=== PATIENT | male | born 1970 | race Caucasian/White ===

== ENCOUNTER 2017-08-24 13:55 | Emergency (ER) | payer MEDICAID ==
[~2017-08-24] VITALS: Ht 172.7 cm; Wt 86.2 kg
[~2017-08-24 13:55] MED LIST: GLY25T PO
[2017-08-24] MEDS ORDERED: cefTRIAXone W LIDOCAINE 1 GM IM IM ONE (15:00)
[2017-08-24 15:16] LABS: Basophils # (auto) 0 uL; Basophils % (auto) 0.3 % (0.0-2.0); Eosinophils # (auto) 0.1 uL; Eosinophils % (auto) 1.2 % (0.0-7.0); Hematocrit 51.1 % (41.0-53.0); Hemoglobin 17.2 g/dL (13.5-17.5); Lymphocytes # (auto) 2.2 uL; Mean Corpuscular Hemoglobin 29.9 pg (28.0-32.0); Mean Corpuscular Hgb Conc. 33.7 g/dL (32.0-36.0); Mean Corpuscular Volume 88.8 fL (80.0-100.0); Monocytes # (auto) 0.3 uL; Monocytes % (auto) 4.2 % (0.0-12.0); Neutrophils # (auto) 5.3 uL; Neutrophils % (auto) 66.3 % (37.0-80.0); Nucleated Red Blood Cells % 0.1 %; Platelet Count (auto) 188 10^3/uL (140-450); Red Blood Cells 5.75 10^6/uL (4.5-5.90); Red Cell Distribution Width 13.2 % (11.8-14.3)
[2017-08-24 15:33] LABS: Albumin 3.9 g/dL (3.4-5.0); BUN/Creatinine Ratio 10.5; Bilirubin, Total 0.4 mg/dL (0.2-1.0); Calcium 9.3 mg/dL (8.5-10.1); Potassium 4.5 mmol/L (3.5-5.1); Total Protein 8.8 g/dL (6.4-8.2)
[2017-08-24] MEDS ORDERED: InsuLIN REG 1unit/0.01ml Soln (100units/ml) IV ONE (16:00)
[2017-08-24 17:20] VITALS: BP 169/102
== END 2017-08-24 18:08 | disposition home or self-care (01) ==
LOC: ER 13:55
DX: L03.116 Cellulitis of left lower limb (principal); E11.65 Type 2 diabetes mellitus with hyperglycemia; J44.9 Chronic obstructive pulmonary disease, unspecified; F17.210 Nicotine dependence, cigarettes, uncomplicated; E78.5 Hyperlipidemia, unspecified
CPT/HCPCS: 36415; 80053; 82962; 85025; 85652; 96372; 96374; 99284; J0696; J1815

== ENCOUNTER 2017-09-01 18:42 | Inpatient (IN) | payer MEDICAID, OTHER ==
[~2017-09-01] VITALS: Ht 175.3 cm; Wt 84.9 kg
[2017-09-01 19:30] LABS: Basophils # (auto) 0.1 uL; Basophils % (auto) 1.3 % (0.0-2.0); Eosinophils # (auto) 0.1 uL; Eosinophils % (auto) 1.9 % (0.0-7.0); Hematocrit 47.7 % (41.0-53.0); Hemoglobin 16.9 g/dL (13.5-17.5); Lymphocytes # (auto) 2.9 uL; Lymphocytes % (auto) 38.6 % (10.0-50.0); Mean Corpuscular Hemoglobin 31.5 pg (28.0-32.0); Mean Corpuscular Hgb Conc. 35.5 g/dL (32.0-36.0); Mean Corpuscular Volume 88.8 fL (80.0-100.0); Monocytes # (auto) 0.4 uL; Monocytes % (auto) 5.4 % (0.0-12.0); Neutrophils % (auto) 52.8 % (37.0-80.0); Nucleated Red Blood Cells % 0.2 %; Platelet Count (auto) 192 10^3/uL (140-450); Red Blood Cells 5.38 10^6/uL (4.5-5.90); Red Cell Distribution Width 13.3 % (11.8-14.3); White Blood Cell 7.6 10^3/uL (4.4-10.8)
[2017-09-01 19:56] LABS: Albumin 3.8 g/dL (3.4-5.0); BUN/Creatinine Ratio 14.4; Bilirubin, Total 0.3 mg/dL (0.2-1.0); Calcium 9.4 mg/dL (8.5-10.1); Potassium 4.5 mmol/L (3.5-5.1); Total Protein 8.4 g/dL (6.4-8.2)
[2017-09-02] MEDS ORDERED: MORPHINE SULFATE 8mg/ml INJ SDV IV ONE (02:30)
[2017-09-02] MEDS ORDERED: ONDANSETRON HCL 4 MG/2 ML VIAL IV ONE (02:30)
[2017-09-02] MEDS ORDERED: InsuLIN REG 1unit/0.01ml Soln (100units/ml) IV ONE (02:45)
[2017-09-02] MEDS ORDERED: VANCOMYCIN 1GM/250ML 250 ML IV ONE (04:15)
[2017-09-02] MEDS ORDERED: ACETAMINOPHEN 500 MG TAB PO PRN (07:00)
[2017-09-02] MEDS: ONDANSETRON HCL 4 MG/2 ML VIAL IV PRN ×2 (07:45→14:52)
[2017-09-02] MEDS: MORPHINE SULFATE 8mg/ml INJ SDV IV PRN ×3 (07:45→21:50)
[2017-09-02] MEDS: glyBURIDE 5 MG TAB PO SCH (07:49)
[2017-09-02] MEDS ORDERED: DEXTROSE (50%) 50ML SYRG IV PRN (14:00)
[2017-09-02] MEDS ORDERED: LISINOPRIL 10 MG TAB PO ONE (14:00)
[2017-09-02] MEDS ORDERED: hydrALAZINE HCL 25 MG TAB PO PRN (14:00)
[2017-09-02] MEDS ORDERED: LORazepam 2MG/ML-1ML VIAL IV ONE (14:15)
[2017-09-02] MEDS ORDERED: KETOROLAC TROMETH 30 MG/ML 1ML VIAL IV ONE (14:30)
[2017-09-02] MEDS ORDERED: KETOROLAC TROMETH 30 MG/ML 1ML VIAL IV PRN (14:30)
[2017-09-02 15:14] LABS: INR 0.96 (0.9-1.15); Partial Thromboplastin Time 23.6 sec (22.64-33.71); Prothrombin Time 10.5 sec (9.37-12.3)
[2017-09-02] MEDS: CLINDAMYCIN 600MG IV 50 ML IV SCH ×2 (16:08→21:50)
[2017-09-02 16:46] VITALS: BP 152/87
[2017-09-02] MEDS ORDERED: INSLANTI SC (17:02)
[2017-09-02] MEDS: ACCU-CHEK COMFORT CURVE STRIP VI SCH ×2 (17:34→21:50)
[2017-09-02] MEDS: InsuLIN REG 1unit/0.01ml Soln (100units/ml) SC SCH ×2 (17:35→22:15)
[2017-09-02 18:28] VITALS: BP 140/80
[2017-09-02 22:00] VITALS: BP_SYST 102; BP_SYST 159; BP_DIAS 110; BP_DIAS 62
[2017-09-03] VITALS (7 sets, daily range): BP systolic 130–151; BP diastolic 75–97
[2017-09-03] MEDS: MORPHINE SULFATE 8mg/ml INJ SDV IV PRN (03:32)
[2017-09-03 04:24] LABS: Alcohol, Urine < 3.0 mg/dL (0-5); Amphetamine Screen, Urine NEGATIVE (NEGATIVE); Barbiturate Scree,Urine NEGATIVE (NEGATIVE); Benzodiazephine Screen, Urine NEGATIVE (NEGATIVE); Cannabinoid Screen, Urine POSITIVE (NEGATIVE); Cocaine Screen, Urine NEGATIVE (NEGATIVE); Opiate Scree,Urine POSITIVE (NEGATIVE); Phencyclidine Screen, Urine NEGATIVE (NEGATIVE)
[2017-09-03] MEDS: CLINDAMYCIN 600MG IV 50 ML IV SCH ×3 (05:56→22:17)
[2017-09-03] MEDS: glyBURIDE 5 MG TAB PO SCH (06:30)
[2017-09-03] MEDS: ACCU-CHEK COMFORT CURVE STRIP VI SCH ×4 (06:34→21:58)
[2017-09-03] MEDS: InsuLIN REG 1unit/0.01ml Soln (100units/ml) SC SCH ×4 (06:34→22:16)
[2017-09-03] MEDS: cefTRIAXone 1GM/10ml IVPUSH 10 ML IV SCH (09:25)
[2017-09-03] MEDS ORDERED: SODIUM CHLORIDE 0.9% 1,000 ML IV ONE (09:45)
[2017-09-03] MEDS ORDERED: MEPERIDINE HCL (25 MG/ML) 1ML VIAL IV ONE (09:45)
[2017-09-03] MEDS ORDERED: LORazepam 0.5 MG TAB PO PRN (09:45)
[2017-09-03] MEDS ORDERED: LISINOPRIL 10 MG TAB PO SCH (10:00)
[2017-09-03] MEDS ORDERED: IOHEXOL 350 MG/ML 100ML IJ ONE (11:54)
[2017-09-03 14:12] LABS: Basophils # (auto) 0.1 uL; Basophils % (auto) 0.8 % (0.0-2.0); Eosinophils # (auto) 0.1 uL; Eosinophils % (auto) 1.7 % (0.0-7.0); Hematocrit 44.6 % (41.0-53.0); Hemoglobin 15.5 g/dL (13.5-17.5); Lymphocytes # (auto) 2.6 uL; Lymphocytes % (auto) 39.4 % (10.0-50.0); Mean Corpuscular Hemoglobin 30.9 pg (28.0-32.0); Mean Corpuscular Hgb Conc. 34.8 g/dL (32.0-36.0); Mean Corpuscular Volume 88.8 fL (80.0-100.0); Monocytes # (auto) 0.4 uL; Neutrophils # (auto) 3.4 uL; Neutrophils % (auto) 52.1 % (37.0-80.0); Nucleated Red Blood Cells % 0.3 %; Platelet Count (auto) 175 10^3/uL (140-450); Red Blood Cells 5.02 10^6/uL (4.5-5.90); Red Cell Distribution Width 13.3 % (11.8-14.3); White Blood Cell 6.5 10^3/uL (4.4-10.8)
[2017-09-03 14:21] LABS: INR 0.95 (0.9-1.15); Prothrombin Time 10.3 sec (9.37-12.3)
[2017-09-03] MEDS ORDERED: HEPARIN SODIUM (PORCINE) 5000 UNITS/ML 1ML VIAL IV ONE (14:30)
[2017-09-03] MEDS: HEPARIN DRIP/D5W 100UNITS/ML 250 ML IV SCH (16:15)
[2017-09-03] MEDS: MEPERIDINE HCL (25 MG/ML) 1ML VIAL IV PRN ×2 (18:45→23:16)
[2017-09-03] MEDS: INSULIN LANTUS (GLARGINE) 1 /0.01ml (100units/ml) SC SCH (22:16)
[2017-09-03 23:26] LABS: INR 0.97 (0.9-1.15); Partial Thromboplastin Time 50.8 sec (22.64-33.71); Prothrombin Time 10.6 sec (9.37-12.3)
[2017-09-04] VITALS (7 sets, daily range): BP systolic 127–160; BP diastolic 65–99
[2017-09-04] MEDS: MEPERIDINE HCL (25 MG/ML) 1ML VIAL IV PRN ×2 (04:44→09:06)
[2017-09-04] MEDS: HEPARIN DRIP/D5W 100UNITS/ML 250 ML IV SCH (06:08)
[2017-09-04] MEDS: CLINDAMYCIN 600MG IV 50 ML IV SCH (06:27)
[2017-09-04] MEDS: ACCU-CHEK COMFORT CURVE STRIP VI SCH ×4 (06:48→22:26)
[2017-09-04 06:51] LABS: Basophils # (auto) 0 uL; Basophils % (auto) 0.6 % (0.0-2.0); Eosinophils # (auto) 0.2 uL; Eosinophils % (auto) 2.8 % (0.0-7.0); Hematocrit 42.9 % (41.0-53.0); Hemoglobin 14.9 g/dL (13.5-17.5); Lymphocytes # (auto) 2.9 uL; Lymphocytes % (auto) 47.5 % (10.0-50.0); Mean Corpuscular Hemoglobin 30.9 pg (28.0-32.0); Mean Corpuscular Hgb Conc. 34.8 g/dL (32.0-36.0); Mean Corpuscular Volume 88.9 fL (80.0-100.0); Monocytes # (auto) 0.5 uL; Monocytes % (auto) 7.7 % (0.0-12.0); Neutrophils # (auto) 2.5 uL; Neutrophils % (auto) 41.4 % (37.0-80.0); Nucleated Red Blood Cells % 0.3 %; Platelet Count (auto) 154 10^3/uL (140-450); Red Blood Cells 4.82 10^6/uL (4.5-5.90); Red Cell Distribution Width 13.3 % (11.8-14.3); White Blood Cell 6.1 10^3/uL (4.4-10.8)
[2017-09-04] MEDS: glyBURIDE 5 MG TAB PO SCH (07:00)
[2017-09-04] MEDS: InsuLIN REG 1unit/0.01ml Soln (100units/ml) SC SCH ×4 (07:05→22:27)
[2017-09-04] MEDS: INSULIN LANTUS (GLARGINE) 1 /0.01ml (100units/ml) SC SCH ×2 (07:05→22:00)
[2017-09-04 08:37] LABS: Urine Bacteria NONE SEEN /hpf (None Seen); Urine Blood Negative /uL (Negative); Urine Specific Gravity 1.021 (1.001-1.035); Urine WBC 1 /hpf (0 - 3)
[2017-09-04 09:03] LABS: BUN/Creatinine Ratio 15.9; Calcium 9.4 mg/dL (8.5-10.1)
[2017-09-04] MEDS: cefTRIAXone 1GM/10ml IVPUSH 10 ML IV SCH (09:05)
[2017-09-04] MEDS ORDERED: LIDOCAINE 2%HCL (LOCAL ANESTH.) INJ 20ML MDV ONE ×2 (10:10→18:16)
[2017-09-04] MEDS ORDERED: IODIXANOL 320MG/ML 100ML BTL IV ONE (10:10)
[2017-09-04] MEDS ORDERED: fentaNYL CITRATE 100 MCG/2 ML VL ONE (10:35)
[2017-09-04] MEDS ORDERED: MIDAZOLAM HCL 1MG/1ML-2 ML VIAL ONE ×2 (10:36→19:26)
[2017-09-04] MEDS ORDERED: SODIUM CHL 0.9% 50 ML ONE ×2 (10:37→19:32)
[2017-09-04] MEDS ORDERED: ANGIOMAX 250 MG VIAL IV ONE ×2 (10:37→19:32)
[2017-09-04] MEDS ORDERED: HYDROmorphone HCL 2 MG/ML VL ONE ×2 (11:39→19:05)
[2017-09-04] MEDS ORDERED: ASPirin 325 MG TAB ONE (11:40)
[2017-09-04] MEDS ORDERED: CATHFLO ACTIVASE (ALTEPLASE) 2 MG VIAL IV ONE ×2 (11:41→15:20)
[2017-09-04] MEDS ORDERED: CLOPIDOGREL 300 MG TAB ONE (11:41)
[2017-09-04] MEDS: CLINDAMYCIN HCL 150 MG CAP PO SCH ×2 (14:00→22:26)
[2017-09-04] MEDS ORDERED: HYDROmorphone HCL 2 MG/ML VL IV ONE (14:45)
[2017-09-04] MEDS: LISINOPRIL 10 MG TAB PO SCH ×2 (14:50→22:27)
[2017-09-04] MEDS ORDERED: IOHEXOL 350 MG/ML 100ML IJ ONE (18:15)
[2017-09-04] MEDS ORDERED: HEPARIN DRIP/D5W 100UNITS/ML 250 ML IV SCH ×2 (18:26→20:05)
[2017-09-04] MEDS ORDERED: HEPARIN SODIUM (PORCINE) 5000 UNITS/ML 1ML VIAL IV ONE (18:30)
[2017-09-04] MEDS ORDERED: ALTEPLASE IART SCH (19:15)
[2017-09-04] MEDS ORDERED: ALTEPLASE (RECOMBINANT) 100 MG in STERILE WATER 100 ML IV ONE ×3 (20:15→21:30)
[2017-09-04 21:20] LABS: Basophils # (auto) 0 uL; Basophils % (auto) 0.3 % (0.0-2.0); Eosinophils # (auto) 0.1 uL; Hematocrit 42.1 % (41.0-53.0); Hemoglobin 14.1 g/dL (13.5-17.5); Lymphocytes # (auto) 1.9 uL; Lymphocytes % (auto) 23.2 % (10.0-50.0); Mean Corpuscular Hemoglobin 29.8 pg (28.0-32.0); Mean Corpuscular Hgb Conc. 33.6 g/dL (32.0-36.0); Mean Corpuscular Volume 88.7 fL (80.0-100.0); Monocytes # (auto) 0.5 uL; Monocytes % (auto) 6.5 % (0.0-12.0); Neutrophils # (auto) 5.6 uL; Nucleated Red Blood Cells % 0.1 %; Platelet Count (auto) 160 10^3/uL (140-450); Red Blood Cells 4.75 10^6/uL (4.5-5.90); Red Cell Distribution Width 13.3 % (11.8-14.3); White Blood Cell 8.2 10^3/uL (4.4-10.8)
[2017-09-04] MEDS ORDERED: ALTEPLASE IV ONE ×2 (21:30→22:00)
[2017-09-04] MEDS ORDERED: STERILE WATER IV ONE ×2 (21:30→22:00)
[2017-09-04 21:35] LABS: INR 1.41 (0.9-1.15); Partial Thromboplastin Time 50.4 sec (22.64-33.71); Prothrombin Time 15.4 sec (9.37-12.3)
[2017-09-04] MEDS: HYDROmorphone HCL 2 MG/ML VL IV PRN (22:26)
[2017-09-05] VITALS (19 sets, daily range): BP systolic 116–159; BP diastolic 36–93
[2017-09-05] MEDS: HYDROmorphone HCL 2 MG/ML VL IV PRN ×4 (02:26→22:42)
[2017-09-05 04:27] LABS: Basophils # (auto) 0 uL; Basophils % (auto) 0.5 % (0.0-2.0); Eosinophils # (auto) 0.1 uL; Eosinophils % (auto) 1.1 % (0.0-7.0); Hematocrit 34.7 % (41.0-53.0); Hemoglobin 11.9 g/dL (13.5-17.5); Lymphocytes # (auto) 2.4 uL; Lymphocytes % (auto) 37.3 % (10.0-50.0); Mean Corpuscular Hemoglobin 30.7 pg (28.0-32.0); Mean Corpuscular Hgb Conc. 34.3 g/dL (32.0-36.0); Mean Corpuscular Volume 89.5 fL (80.0-100.0); Monocytes # (auto) 0.4 uL; Monocytes % (auto) 6.5 % (0.0-12.0); Neutrophils # (auto) 3.6 uL; Neutrophils % (auto) 54.6 % (37.0-80.0); Platelet Count (auto) 145 10^3/uL (140-450); Red Blood Cells 3.88 10^6/uL (4.5-5.90); Red Cell Distribution Width 13.1 % (11.8-14.3); White Blood Cell 6.5 10^3/uL (4.4-10.8)
[2017-09-05 04:44] LABS: INR 1.01 (0.9-1.15); Partial Thromboplastin Time 25.7 sec (22.64-33.71)
[2017-09-05 05:34] LABS: Fibrinogen 241.3 mg/dL (177-375)
[2017-09-05] MEDS: glyBURIDE 5 MG TAB PO SCH (05:57)
[2017-09-05] MEDS: CLINDAMYCIN HCL 150 MG CAP PO SCH ×3 (05:57→21:58)
[2017-09-05] MEDS: InsuLIN REG 1unit/0.01ml Soln (100units/ml) SC SCH ×4 (06:26→22:09)
[2017-09-05] MEDS: INSULIN LANTUS (GLARGINE) 1 /0.01ml (100units/ml) SC SCH ×2 (06:27→22:08)
[2017-09-05] MEDS: ACCU-CHEK COMFORT CURVE STRIP VI SCH ×4 (06:28→22:08)
[2017-09-05] MEDS: MEPERIDINE HCL (50 MG/ML) 1 ML VIAL IV PRN ×2 (09:02→18:28)
[2017-09-05] MEDS: LISINOPRIL 10 MG TAB PO SCH ×2 (09:24→21:58)
[2017-09-05 09:40] LABS: Basophils # (auto) 0 uL; Basophils % (auto) 0.6 % (0.0-2.0); Eosinophils # (auto) 0.1 uL; Eosinophils % (auto) 1.8 % (0.0-7.0); Hematocrit 37.4 % (41.0-53.0); Hemoglobin 12.9 g/dL (13.5-17.5); Lymphocytes # (auto) 2.5 uL; Lymphocytes % (auto) 38.6 % (10.0-50.0); Mean Corpuscular Hemoglobin 30.5 pg (28.0-32.0); Mean Corpuscular Hgb Conc. 34.4 g/dL (32.0-36.0); Mean Corpuscular Volume 88.7 fL (80.0-100.0); Monocytes # (auto) 0.5 uL; Monocytes % (auto) 7.1 % (0.0-12.0); Neutrophils # (auto) 3.4 uL; Neutrophils % (auto) 51.9 % (37.0-80.0); Nucleated Red Blood Cells % 0.2 %; Platelet Count (auto) 152 10^3/uL (140-450); Red Blood Cells 4.22 10^6/uL (4.5-5.90); Red Cell Distribution Width 13.2 % (11.8-14.3); White Blood Cell 6.5 10^3/uL (4.4-10.8)
[2017-09-05] MEDS ORDERED: IODIXANOL 320MG/ML 100ML BTL IV ONE (09:49)
[2017-09-05] MEDS ORDERED: LIDOCAINE 2%HCL (LOCAL ANESTH.) INJ 20ML MDV ONE (09:50)
[2017-09-05 10:04] LABS: Fibrinogen 295.3 mg/dL (177-375); INR 0.98 (0.9-1.15); Partial Thromboplastin Time 25.9 sec (22.64-33.71); Prothrombin Time 10.7 sec (9.37-12.3)
[2017-09-05] MEDS ORDERED: HYDROmorphone HCL 2 MG/ML VL ONE (10:44)
[2017-09-05] MEDS ORDERED: MIDAZOLAM HCL 1MG/1ML-2 ML VIAL ONE (10:51)
[2017-09-05] MEDS ORDERED: CATHFLO ACTIVASE (ALTEPLASE) 2 MG VIAL IV ONE ×4 (11:03→13:07)
[2017-09-05] MEDS ORDERED: SODIUM CHL 0.9% 50 ML ONE ×3 (11:04→13:32)
[2017-09-05] MEDS ORDERED: ANGIOMAX 250 MG VIAL IV ONE ×3 (11:04→13:32)
[2017-09-05] MEDS ORDERED: IOHEXOL 350 MG/ML 100ML IJ ONE ×2 (11:39→13:20)
[2017-09-05] MEDS ORDERED: CLOPIDOGREL BISULFATE 75 MG TAB ONE (12:05)
[2017-09-05] MEDS ORDERED: ASPirin 81 mg TAB ONE (12:06)
[2017-09-05 14:58] LABS: Basophils # (auto) 0 uL; Basophils % (auto) 0.4 % (0.0-2.0); Eosinophils # (auto) 0.1 uL; Eosinophils % (auto) 1.6 % (0.0-7.0); Hematocrit 37.8 % (41.0-53.0); Hemoglobin 12.8 g/dL (13.5-17.5); Lymphocytes # (auto) 2.2 uL; Lymphocytes % (auto) 31.5 % (10.0-50.0); Mean Corpuscular Hgb Conc. 33.8 g/dL (32.0-36.0); Mean Corpuscular Volume 88.9 fL (80.0-100.0); Monocytes # (auto) 0.5 uL; Monocytes % (auto) 7.5 % (0.0-12.0); Neutrophils # (auto) 4.1 uL; Nucleated Red Blood Cells % 0.1 %; Platelet Count (auto) 159 10^3/uL (140-450); Red Blood Cells 4.26 10^6/uL (4.5-5.90); Red Cell Distribution Width 13.2 % (11.8-14.3)
[2017-09-05] MEDS: HEPARIN DRIP/D5W 100UNITS/ML 250 ML IV SCH (17:03)
[2017-09-05 17:53] LABS: Basophils # (auto) 0 uL; Basophils % (auto) 0.6 % (0.0-2.0); Eosinophils # (auto) 0.1 uL; Eosinophils % (auto) 1.6 % (0.0-7.0); Hemoglobin 11.8 g/dL (13.5-17.5); Lymphocytes # (auto) 1.7 uL; Lymphocytes % (auto) 26.7 % (10.0-50.0); Mean Corpuscular Hemoglobin 30.5 pg (28.0-32.0); Mean Corpuscular Hgb Conc. 34.6 g/dL (32.0-36.0); Monocytes # (auto) 0.4 uL; Monocytes % (auto) 6.8 % (0.0-12.0); Neutrophils # (auto) 4.1 uL; Neutrophils % (auto) 64.3 % (37.0-80.0); Nucleated Red Blood Cells % 0.1 %; Platelet Count (auto) 144 10^3/uL (140-450); Red Blood Cells 3.86 10^6/uL (4.5-5.90); Red Cell Distribution Width 12.8 % (11.8-14.3); White Blood Cell 6.4 10^3/uL (4.4-10.8)
[2017-09-05 21:28] LABS: INR 0.99 (0.9-1.15); Partial Thromboplastin Time 41.3 sec (22.64-33.71); Prothrombin Time 10.8 sec (9.37-12.3)
[2017-09-06 00:05] VITALS: BP 134/78
[2017-09-06 01:16] LABS: Basophils # (auto) 0 uL; Basophils % (auto) 0.5 % (0.0-2.0); Eosinophils # (auto) 0.1 uL; Eosinophils % (auto) 2.1 % (0.0-7.0); Hemoglobin 11.3 g/dL (13.5-17.5); Lymphocytes # (auto) 2.5 uL; Lymphocytes % (auto) 39.4 % (10.0-50.0); Mean Corpuscular Hemoglobin 30.6 pg (28.0-32.0); Mean Corpuscular Hgb Conc. 34.3 g/dL (32.0-36.0); Mean Corpuscular Volume 89.2 fL (80.0-100.0); Monocytes # (auto) 0.5 uL; Monocytes % (auto) 7.5 % (0.0-12.0); Neutrophils # (auto) 3.2 uL; Neutrophils % (auto) 50.5 % (37.0-80.0); Nucleated Red Blood Cells % 0.3 %; Platelet Count (auto) 142 10^3/uL (140-450); Red Cell Distribution Width 13.2 % (11.8-14.3); White Blood Cell 6.3 10^3/uL (4.4-10.8)
[2017-09-06] MEDS: HEPARIN DRIP/D5W 100UNITS/ML 250 ML IV SCH ×2 (02:17→16:30)
[2017-09-06] MEDS: HYDROmorphone HCL 2 MG/ML VL IV PRN ×4 (02:44→17:51)
[2017-09-06 04:10] VITALS: BP 128/78
[2017-09-06 05:22] LABS: Basophils # (auto) 0 uL; Basophils % (auto) 0.4 % (0.0-2.0); Eosinophils # (auto) 0.1 uL; Eosinophils % (auto) 2.1 % (0.0-7.0); Hematocrit 33.7 % (41.0-53.0); Hemoglobin 11.8 g/dL (13.5-17.5); Lymphocytes % (auto) 44.3 % (10.0-50.0); Mean Corpuscular Hemoglobin 30.8 pg (28.0-32.0); Mean Corpuscular Hgb Conc. 34.9 g/dL (32.0-36.0); Mean Corpuscular Volume 88.3 fL (80.0-100.0); Monocytes # (auto) 0.5 uL; Monocytes % (auto) 7.6 % (0.0-12.0); Neutrophils # (auto) 3.1 uL; Neutrophils % (auto) 45.6 % (37.0-80.0); Platelet Count (auto) 147 10^3/uL (140-450); Red Blood Cells 3.82 10^6/uL (4.5-5.90); White Blood Cell 6.9 10^3/uL (4.4-10.8)
[2017-09-06 05:42] LABS: Calcium 8.8 mg/dL (8.5-10.1); Potassium 3.9 mmol/L (3.5-5.1)
[2017-09-06 05:43] LABS: INR 1.03 (0.9-1.15); Partial Thromboplastin Time 50.3 sec (22.64-33.71); Prothrombin Time 11.2 sec (9.37-12.3)
[2017-09-06] MEDS: MEPERIDINE HCL (50 MG/ML) 1 ML VIAL IV PRN ×4 (06:19→20:35)
[2017-09-06] MEDS: ACCU-CHEK COMFORT CURVE STRIP VI SCH ×4 (06:33→22:28)
[2017-09-06] MEDS: CLINDAMYCIN HCL 150 MG CAP PO SCH ×3 (06:35→22:27)
[2017-09-06] MEDS: INSULIN LANTUS (GLARGINE) 1 /0.01ml (100units/ml) SC SCH ×2 (06:36→22:28)
[2017-09-06] MEDS: glyBURIDE 5 MG TAB PO SCH (06:36)
[2017-09-06] MEDS: InsuLIN REG 1unit/0.01ml Soln (100units/ml) SC SCH ×4 (06:37→22:28)
[2017-09-06 08:00] VITALS: BP 115/91
[2017-09-06] MEDS: CLOPIDOGREL BISULFATE 75 MG TAB PO SCH (10:34)
[2017-09-06] MEDS: LISINOPRIL 10 MG TAB PO SCH ×2 (10:35→22:33)
[2017-09-06] MEDS: ASPirin-EC 81 mg tab PO SCH (10:36)
[2017-09-06 11:44] LABS: Basophils # (auto) 0 uL; Basophils % (auto) 0.3 % (0.0-2.0); Eosinophils # (auto) 0.1 uL; Eosinophils % (auto) 2.2 % (0.0-7.0); Hematocrit 31.7 % (41.0-53.0); Hemoglobin 10.8 g/dL (13.5-17.5); Lymphocytes # (auto) 2.4 uL; Lymphocytes % (auto) 39.3 % (10.0-50.0); Mean Corpuscular Hemoglobin 30.1 pg (28.0-32.0); Mean Corpuscular Volume 88.4 fL (80.0-100.0); Monocytes # (auto) 0.5 uL; Monocytes % (auto) 7.3 % (0.0-12.0); Neutrophils # (auto) 3.2 uL; Neutrophils % (auto) 50.9 % (37.0-80.0); Platelet Count (auto) 138 10^3/uL (140-450); Red Blood Cells 3.58 10^6/uL (4.5-5.90); Red Cell Distribution Width 12.8 % (11.8-14.3); White Blood Cell 6.2 10^3/uL (4.4-10.8)
[2017-09-06 11:50] VITALS: BP 146/66
[2017-09-06 12:00] LABS: INR 0.99 (0.9-1.15); Prothrombin Time 10.8 sec (9.37-12.3)
[2017-09-06] MEDS: HYDROcodone-ACET 5/325MG TAB PO PRN ×2 (14:12→19:13)
[2017-09-06 15:57] VITALS: BP 153/80
[2017-09-06 17:36] LABS: Basophils # (auto) 0 uL; Basophils % (auto) 0.4 % (0.0-2.0); Eosinophils # (auto) 0.2 uL; Eosinophils % (auto) 2.6 % (0.0-7.0); Hemoglobin 11.4 g/dL (13.5-17.5); Lymphocytes # (auto) 3.1 uL; Lymphocytes % (auto) 45.2 % (10.0-50.0); Mean Corpuscular Hemoglobin 30.7 pg (28.0-32.0); Mean Corpuscular Hgb Conc. 34.6 g/dL (32.0-36.0); Monocytes # (auto) 0.6 uL; Monocytes % (auto) 8.3 % (0.0-12.0); Neutrophils % (auto) 43.5 % (37.0-80.0); Nucleated Red Blood Cells % 0.1 %; Platelet Count (auto) 168 10^3/uL (140-450); Red Blood Cells 3.71 10^6/uL (4.5-5.90); Red Cell Distribution Width 13.1 % (11.8-14.3); White Blood Cell 6.8 10^3/uL (4.4-10.8)
[2017-09-06 19:50] VITALS: BP 133/59
[2017-09-06 23:25] LABS: INR 0.95 (0.9-1.15); Partial Thromboplastin Time 55.3 sec (22.64-33.71); Prothrombin Time 10.4 sec (9.37-12.3)
[2017-09-07 00:10] VITALS: BP 124/75
[2017-09-07] MEDS: HYDROmorphone HCL 2 MG/ML VL IV PRN ×5 (00:25→20:20)
[2017-09-07] MEDS: MEPERIDINE HCL (50 MG/ML) 1 ML VIAL IV PRN (03:52)
[2017-09-07 04:10] VITALS: BP 140/90
[2017-09-07] MEDS: HEPARIN DRIP/D5W 100UNITS/ML 250 ML IV SCH ×2 (05:15→15:18)
[2017-09-07 05:24] LABS: Basophils # (auto) 0 uL; Basophils % (auto) 0.5 % (0.0-2.0); Eosinophils # (auto) 0.2 uL; Hematocrit 30.4 % (41.0-53.0); Hemoglobin 10.4 g/dL (13.5-17.5); Lymphocytes # (auto) 2.4 uL; Lymphocytes % (auto) 47.5 % (10.0-50.0); Mean Corpuscular Hemoglobin 30.5 pg (28.0-32.0); Mean Corpuscular Hgb Conc. 34.1 g/dL (32.0-36.0); Mean Corpuscular Volume 89.3 fL (80.0-100.0); Monocytes # (auto) 0.5 uL; Neutrophils # (auto) 2.1 uL; Nucleated Red Blood Cells % 0.1 %; Platelet Count (auto) 142 10^3/uL (140-450); Red Cell Distribution Width 13.2 % (11.8-14.3); White Blood Cell 5.1 10^3/uL (4.4-10.8)
[2017-09-07 05:39] LABS: INR 0.95 (0.9-1.15); Partial Thromboplastin Time 63.4 sec (22.64-33.71); Prothrombin Time 10.4 sec (9.37-12.3)
[2017-09-07 05:41] LABS: BUN/Creatinine Ratio 12.7; Calcium 8.5 mg/dL (8.5-10.1); Potassium 3.8 mmol/L (3.5-5.1)
[2017-09-07] MEDS: CLINDAMYCIN HCL 150 MG CAP PO SCH ×3 (05:48→21:49)
[2017-09-07] MEDS: InsuLIN REG 1unit/0.01ml Soln (100units/ml) SC SCH ×4 (06:52→21:50)
[2017-09-07] MEDS: INSULIN LANTUS (GLARGINE) 1 /0.01ml (100units/ml) SC SCH ×2 (06:52→21:50)
[2017-09-07] MEDS: glyBURIDE 5 MG TAB PO SCH (06:53)
[2017-09-07] MEDS: ACCU-CHEK COMFORT CURVE STRIP VI SCH ×4 (06:53→21:50)
[2017-09-07 08:00] VITALS: BP 142/76
[2017-09-07] MEDS: CLOPIDOGREL BISULFATE 75 MG TAB PO SCH (11:17)
[2017-09-07] MEDS: LISINOPRIL 10 MG TAB PO SCH ×2 (11:17→21:50)
[2017-09-07] MEDS: ASPirin-EC 81 mg tab PO SCH (11:24)
[2017-09-07 11:50] VITALS: BP 130/82
[2017-09-07 15:52] VITALS: BP 145/82
[2017-09-07] MEDS: HYDROcodone-ACET 5/325MG TAB PO PRN (17:46)
[2017-09-07] MEDS: ATORVASTATIN 20 MG TAB PO SCH (21:49)
[2017-09-07 22:00] VITALS: BP 157/99
[2017-09-08] MEDS: HYDROmorphone HCL 2 MG/ML VL IV PRN ×6 (00:19→20:56)
[2017-09-08] MEDS: HEPARIN DRIP/D5W 100UNITS/ML 250 ML IV SCH ×2 (04:48→16:42)
[2017-09-08 05:00] VITALS: BP 143/84
[2017-09-08] MEDS: CLINDAMYCIN HCL 150 MG CAP PO SCH ×3 (05:27→21:44)
[2017-09-08 06:07] LABS: INR 0.95 (0.9-1.15); Partial Thromboplastin Time 61.3 sec (22.64-33.71); Prothrombin Time 10.4 sec (9.37-12.3)
[2017-09-08 06:34] LABS: Cholesterol 203 mg/dL (< 200); HDL Cholesterol 46 mg/dL (40-59); LDL Cholesterol 124 mg/dL (< 100); Triglycerides 331 mg/dL (< 150)
[2017-09-08] MEDS: InsuLIN REG 1unit/0.01ml Soln (100units/ml) SC SCH ×4 (06:46→21:45)
[2017-09-08] MEDS: INSULIN LANTUS (GLARGINE) 1 /0.01ml (100units/ml) SC SCH ×2 (06:46→21:45)
[2017-09-08] MEDS: ACCU-CHEK COMFORT CURVE STRIP VI SCH ×4 (06:46→21:45)
[2017-09-08] MEDS: glyBURIDE 5 MG TAB PO SCH (06:46)
[2017-09-08 08:00] VITALS: BP 134/75
[2017-09-08 09:00] VITALS: BP 134/75
[2017-09-08] MEDS: HYDROcodone-ACET 5/325MG TAB PO PRN ×2 (10:52→15:35)
[2017-09-08] MEDS: LISINOPRIL 10 MG TAB PO SCH ×2 (12:22→21:45)
[2017-09-08] MEDS: ASPirin-EC 81 mg tab PO SCH (12:47)
[2017-09-08] MEDS: CLOPIDOGREL BISULFATE 75 MG TAB PO SCH (12:47)
[2017-09-08 13:00] VITALS: BP 150/76
[2017-09-08] MEDS ORDERED: CLOP75TA28 PO (13:12)
[2017-09-08] MEDS ORDERED: ATOR20TA50 PO (13:12)
[2017-09-08] MEDS ORDERED: LISI10TA6 PO (13:12)
[2017-09-08] MEDS ORDERED: ASP81EC PO (13:12)
[2017-09-08 16:43] VITALS: BP 126/65
[2017-09-08] MEDS: ATORVASTATIN 20 MG TAB PO SCH (21:44)
[2017-09-08 23:10] VITALS: BP 143/78
[2017-09-09] MEDS: HYDROmorphone HCL 2 MG/ML VL IV PRN ×6 (01:05→22:00)
[2017-09-09] MEDS: HEPARIN DRIP/D5W 100UNITS/ML 250 ML IV SCH ×2 (05:06→17:47)
[2017-09-09 05:25] VITALS: BP 116/78
[2017-09-09] MEDS: CLINDAMYCIN HCL 150 MG CAP PO SCH ×3 (06:00→22:02)
[2017-09-09 06:03] LABS: BUN/Creatinine Ratio 12.8; Calcium 9.3 mg/dL (8.5-10.1); Potassium 4.1 mmol/L (3.5-5.1)
[2017-09-09 06:06] LABS: INR 0.89 (0.9-1.15); Prothrombin Time 9.7 sec (9.37-12.3)
[2017-09-09 06:07] LABS: Basophils # (auto) 0 uL; Basophils % (auto) 0.6 % (0.0-2.0); Eosinophils # (auto) 0.2 uL; Eosinophils % (auto) 3.9 % (0.0-7.0); Hematocrit 33.2 % (41.0-53.0); Hemoglobin 11.5 g/dL (13.5-17.5); Lymphocytes # (auto) 2.6 uL; Lymphocytes % (auto) 42.9 % (10.0-50.0); Mean Corpuscular Hemoglobin 30.9 pg (28.0-32.0); Mean Corpuscular Hgb Conc. 34.5 g/dL (32.0-36.0); Mean Corpuscular Volume 89.4 fL (80.0-100.0); Monocytes # (auto) 0.5 uL; Monocytes % (auto) 7.5 % (0.0-12.0); Neutrophils # (auto) 2.7 uL; Neutrophils % (auto) 45.1 % (37.0-80.0); Nucleated Red Blood Cells % 0.1 %; Platelet Count (auto) 209 10^3/uL (140-450); Red Blood Cells 3.72 10^6/uL (4.5-5.90); Red Cell Distribution Width 13.1 % (11.8-14.3); White Blood Cell 6.1 10^3/uL (4.4-10.8)
[2017-09-09 06:12] LABS: Partial Thromboplastin Time 71.6 sec (22.64-33.71)
[2017-09-09] MEDS: InsuLIN REG 1unit/0.01ml Soln (100units/ml) SC SCH ×4 (06:33→22:07)
[2017-09-09] MEDS: INSULIN LANTUS (GLARGINE) 1 /0.01ml (100units/ml) SC SCH ×2 (06:33→22:06)
[2017-09-09] MEDS: glyBURIDE 5 MG TAB PO SCH (06:33)
[2017-09-09] MEDS: ACCU-CHEK COMFORT CURVE STRIP VI SCH ×4 (06:34→22:03)
[2017-09-09 08:00] VITALS: BP 139/69
[2017-09-09 09:00] VITALS: BP 139/69
[2017-09-09] MEDS: CLOPIDOGREL BISULFATE 75 MG TAB PO SCH (09:30)
[2017-09-09] MEDS: ASPirin-EC 81 mg tab PO SCH (09:30)
[2017-09-09] MEDS: LISINOPRIL 10 MG TAB PO SCH ×2 (09:31→22:02)
[2017-09-09 13:00] VITALS: BP 118/81
[2017-09-09] MEDS ORDERED: HYDROcodone-ACET 5/325MG TAB PO PRN (14:00)
[2017-09-09] MEDS ORDERED: IODIXANOL 320MG/ML 100ML BTL IV ONE (15:16)
[2017-09-09] MEDS ORDERED: LIDOCAINE 2%HCL (LOCAL ANESTH.) INJ 20ML MDV ONE (15:17)
[2017-09-09] MEDS ORDERED: fentaNYL CITRATE 100 MCG/2 ML VL ONE (15:38)
[2017-09-09] MEDS ORDERED: diphenhdrAMINE HCL 50 MG/1 ML VL ONE (15:38)
[2017-09-09] MEDS ORDERED: MIDAZOLAM HCL 1MG/1ML-2 ML VIAL ONE (15:39)
[2017-09-09] MEDS ORDERED: LIDOCAINE HCL 2% TOP JELLY 5ML TOP ONE (16:15)
[2017-09-09] MEDS: ATORVASTATIN 20 MG TAB PO SCH (22:02)
[2017-09-10] MEDS: HYDROmorphone HCL 2 MG/ML VL IV PRN ×3 (01:59→10:17)
[2017-09-10 05:00] VITALS: BP 103/65
[2017-09-10] MEDS: HEPARIN DRIP/D5W 100UNITS/ML 250 ML IV SCH (06:00)
[2017-09-10] MEDS: CLINDAMYCIN HCL 150 MG CAP PO SCH (06:13)
[2017-09-10] MEDS: glyBURIDE 5 MG TAB PO SCH (06:31)
[2017-09-10] MEDS: ACCU-CHEK COMFORT CURVE STRIP VI SCH ×2 (06:31→11:30)
[2017-09-10] MEDS: InsuLIN REG 1unit/0.01ml Soln (100units/ml) SC SCH ×2 (06:32→11:30)
[2017-09-10] MEDS: INSULIN LANTUS (GLARGINE) 1 /0.01ml (100units/ml) SC SCH (06:32)
[2017-09-10 06:53] LABS: Basophils # (auto) 0 uL; Basophils % (auto) 0.4 % (0.0-2.0); Eosinophils # (auto) 0.2 uL; Eosinophils % (auto) 3.4 % (0.0-7.0); Hemoglobin 12.4 g/dL (13.5-17.5); Lymphocytes # (auto) 3.1 uL; Lymphocytes % (auto) 43.5 % (10.0-50.0); Mean Corpuscular Hemoglobin 30.9 pg (28.0-32.0); Mean Corpuscular Hgb Conc. 34.4 g/dL (32.0-36.0); Mean Corpuscular Volume 89.8 fL (80.0-100.0); Monocytes # (auto) 0.6 uL; Monocytes % (auto) 8.2 % (0.0-12.0); Neutrophils # (auto) 3.1 uL; Neutrophils % (auto) 44.5 % (37.0-80.0); Nucleated Red Blood Cells % 0.1 %; Platelet Count (auto) 235 10^3/uL (140-450); Red Blood Cells 4.01 10^6/uL (4.5-5.90); Red Cell Distribution Width 13.3 % (11.8-14.3); White Blood Cell 7.1 10^3/uL (4.4-10.8)
[2017-09-10 07:05] LABS: INR 0.98 (0.9-1.15); Partial Thromboplastin Time 67.2 sec (22.64-33.71); Prothrombin Time 10.7 sec (9.37-12.3)
[2017-09-10 09:00] VITALS: BP 120/70
[2017-09-10] MEDS ORDERED: GLY5T PO (09:38)
[2017-09-10] MEDS: ASPirin-EC 81 mg tab PO SCH (10:16)
[2017-09-10] MEDS: LISINOPRIL 10 MG TAB PO SCH (10:16)
[2017-09-10] MEDS: CLOPIDOGREL BISULFATE 75 MG TAB PO SCH (10:16)
[2017-09-10 11:20] VITALS: BP 120/70
[2017-09-10 11:45] VITALS: BP 120/70
== END 2017-09-10 12:48 | disposition home or self-care (01) | DRG 169 ==
LOC: ER 18:42 → OVERFLOW 18:43 → WEST WING 09-02 15:44 → DOU IN ICU 09-05 14:37 → TELE-CENTR 09-07 17:55 → CENTRAL 09-09 03:30
PROVIDERS: ADMIT Nurse Practitioner Family; ATTEND Internal Medicine
PROC: 047D3DZ Dilation of Left Common Iliac Artery with Intraluminal Device, Percutaneous Approach (ICD-10-PCS; principal; 2017-09-05)
PROC: 04CD3ZZ Extirpation of Matter from Left Common Iliac Artery, Percutaneous Approach (ICD-10-PCS; 2017-09-05)
PROC: 3E05317 Introduction of Other Thrombolytic into Peripheral Artery, Percutaneous Approach (ICD-10-PCS; 2017-09-05)
PROC: B41G1ZZ Fluoroscopy of Left Lower Extremity Arteries using Low Osmolar Contrast (ICD-10-PCS; 2017-09-09)
DX: E11.51 Type 2 diabetes mellitus with diabetic peripheral angiopathy without gangrene (principal); E11.42 Type 2 diabetes mellitus with diabetic polyneuropathy; D68.69 Other thrombophilia; L03.116 Cellulitis of left lower limb; E11.65 Type 2 diabetes mellitus with hyperglycemia; J44.9 Chronic obstructive pulmonary disease, unspecified; I73.9 Peripheral vascular disease, unspecified; Z80.1 Family history of malignant neoplasm of trachea, bronchus and lung; Z82.49 Family history of ischemic heart disease and other diseases of the circulatory system; Z83.3 Family history of diabetes mellitus; Z79.4 Long term (current) use of insulin; I74.5 Embolism and thrombosis of iliac artery; F17.210 Nicotine dependence, cigarettes, uncomplicated; E78.1 Pure hyperglyceridemia; I77.1 Stricture of artery; I77.89 Other specified disorders of arteries and arterioles
CPT/HCPCS: 36415; 37186; 37211; 37221; 71045; 73700; 73718; 75635; 76000; 76937; 80048; 80053; 80061; 80307; 81001; 82962; 83036; 84550; 85025; 85384; 85610; 85652; 85730; 87081; 93926; 96365; 96375; 96376; 99152; J1815; J1885; J2250; J2270; J2405; J3490; Q9967

== ENCOUNTER 2020-05-13 16:48 | Emergency (ER) | payer MEDICAID ==
[~2020-05-13] VITALS: Ht 172.7 cm; Wt 77.1 kg
[~2020-05-13 16:48] MED LIST changes: +ASPI-394 PO; +ATOR20TA50 PO; +CLOP75TA28 PO; +GLYB5TAB9 PO; +INSLANTI SC; +LISI-648 PO
[2020-05-13 19:28] LABS: Basophils # (auto) 0 10 ^3/uL (0-0.2); Basophils % (auto) 0.4 % (0.0-2.0); Eosinophils # (auto) 0 10 ^3/uL (0-0.8); Eosinophils % (auto) 0.6 % (0.0-7.0); Hematocrit 49.2 % (41.0-53.0); Hemoglobin 17.1 g/dL (13.5-17.5); Lymphocytes # (auto) 2.1 10 ^3/uL (0.4-5.4); Lymphocytes % (auto) 37.7 % (10.0-50.0); Mean Corpuscular Hgb Conc. 34.7 g/dL (32.0-36.0); Mean Corpuscular Volume 86.4 fL (80.0-100.0); Monocytes # (auto) 0.4 10 ^3/uL (0-1.3); Neutrophils % (auto) 54.3 % (37.0-80.0); Nucleated Red Blood Cells % 0.2 %; Platelet Count (auto) 135 10^3/uL (140-450); Red Blood Cells 5.69 10^6/uL (4.5-5.90); Red Cell Distribution Width 12.7 % (11.8-14.3); White Blood Cell 5.6 10^3/uL (4.4-10.8)
[2020-05-13 19:49] LABS: Albumin 3.5 g/dL (3.4-5.0); Calcium 9.5 mg/dL (8.5-10.1); Potassium 4.4 mmol/L (3.5-5.1)
[2020-05-13 19:58] LABS: BUN/Creatinine Ratio 10.7; Bilirubin, Total 0.4 mg/dL (0.2-1.0); Total Protein 8.4 g/dL (6.4-8.2)
[2020-05-13 20:08] LABS: Urine WBC None Seen /hpf (0 - 3)
[2020-05-13 20:41] LABS: Urine Bacteria NONE SEEN /hpf (None Seen); Urine Blood Negative /uL (Negative); Urine Specific Gravity 1.032 (1.001-1.035)
[2020-05-13] MEDS: SODIUM CHLORIDE 0.9% 1,000 ML IVB ONE (23:16)
[2020-05-13] MEDS: InsuLIN REG 1unit/0.01ml Soln (100units/ml) IV ONE ×2 (23:17→23:27)
[2020-05-13] MEDS: SODIUM CHLORIDE 0.9% 500 ML IV ONE (23:47)
[2020-05-14 01:54] VITALS: BP 157/95
[2020-05-23] MEDS ORDERED: LISI-648 PO (09:52)
== END 2020-05-14 01:25 | disposition home or self-care (01) ==
LOC: ER 16:49
DX: E11.65 Type 2 diabetes mellitus with hyperglycemia (principal); Z20.828 Contact with and (suspected) exposure to other viral communicable diseases; E11.00 Type 2 diabetes mellitus with hyperosmolarity without nonketotic hyperglycemic-hyperosmolar coma (NKHHC); J44.9 Chronic obstructive pulmonary disease, unspecified; E78.5 Hyperlipidemia, unspecified; F17.210 Nicotine dependence, cigarettes, uncomplicated; Z79.82 Long term (current) use of aspirin; Z79.899 Other long term (current) drug therapy
CPT/HCPCS: 36415; 71045; 80053; 81001; 82010; 82962; 83036; 85025; 96361; 96374; 99284; J1815; J7030

== ENCOUNTER 2020-05-19 12:32 | Inpatient (IN) | payer MEDICAID ==
[~2020-05-19] VITALS: Ht 175.3 cm; Wt 76.7 kg
[~2020-05-19 12:32] MED LIST changes: -GLY25T PO; +GLYB2.5T9 PO; -LISI-648 PO; +LISI-716 PO
[2020-05-19] MEDS ORDERED: SODIUM CHLORIDE 0.9% 1,000 ML IVB ONE (13:00)
[2020-05-19 13:28] LABS: Basophils # (auto) 0 10 ^3/uL (0-0.2); Basophils % (auto) 0.5 % (0.0-2.0); Eosinophils # (auto) 0.1 10 ^3/uL (0-0.8); Eosinophils % (auto) 1.5 % (0.0-7.0); Hematocrit 44.3 % (41.0-53.0); Hemoglobin 15.7 g/dL (13.5-17.5); Lymphocytes # (auto) 2.5 10 ^3/uL (0.4-5.4); Lymphocytes % (auto) 39.7 % (10.0-50.0); Mean Corpuscular Hemoglobin 30.4 pg (28.0-32.0); Mean Corpuscular Hgb Conc. 35.3 g/dL (32.0-36.0); Mean Corpuscular Volume 85.9 fL (80.0-100.0); Monocytes # (auto) 0.4 10 ^3/uL (0-1.3); Monocytes % (auto) 5.8 % (0.0-12.0); Neutrophils # (auto) 3.3 10 ^3/uL (1.6-8.6); Neutrophils % (auto) 52.5 % (37.0-80.0); Nucleated Red Blood Cells % 0.2 %; Red Blood Cells 5.16 10^6/uL (4.5-5.90); Red Cell Distribution Width 12.7 % (11.8-14.3); White Blood Cell 6.4 10^3/uL (4.4-10.8)
[2020-05-19 13:44] LABS: Albumin 2.9 g/dL (3.4-5.0); Anion Gap 8 (5-15); Calcium 8.3 mg/dL (8.5-10.1); Carbon Dioxide 25 mmol/L (21-32); Chloride 95 mmol/L (98-107); Lipase 186 U/L (73-393); Magnesium 2.2 mg/dL (1.6-2.6); Potassium 4.6 mmol/L (3.5-5.1); Sodium 128 mmol/L (136-145)
[2020-05-19 13:52] LABS: Alkaline Phosphatase 327 U/L (45-117); Bilirubin, Total 0.4 mg/dL (0.2-1.0); GFR African American 95 mL/min; GFR Non-African American 78 mL/min; INR 0.92 (0.9-1.15); Partial Thromboplastin Time 25.1 sec (23.0-31.2)
[2020-05-19 15:17] LABS: Glucose 545 mg/dL (74-106)
[2020-05-19 15:18] LABS: Alanine Aminotransferase 41 U/L (16-61); Aspartate Aminotransferase 28 U/L (15-37); BUN/Creatinine Ratio 20.6; Blood Urea Nitrogen 22 mg/dL (7-18); Total Protein 7.4 g/dL (6.4-8.2)
[2020-05-19] MEDS ORDERED: ASPirin 81 mg TAB PO ONE (16:00)
[2020-05-19] MEDS ORDERED: NITROGLYCERIN 0.4 MG SL TAB SL PRN (16:15)
[2020-05-19] MEDS ORDERED: MORPHINE SULFATE INJECTION 2 MG/ML SYRG IV PRN (16:15)
[2020-05-19] MEDS ORDERED: TEMAZEPAM 15 MG CAP PO PRN (17:30)
[2020-05-19] MEDS ORDERED: DEXTROSE (50%) 50ML SYRG IV PRN (17:30)
[2020-05-19] MEDS ORDERED: ACETAMINOPHEN 500 MG TAB PO PRN (17:30)
[2020-05-19] MEDS ORDERED: traMADol HCL 50 MG TAB PO PRN (17:30)
[2020-05-19] MEDS ORDERED: LACTULOSE 20Gm/30ML SOLN PO PRN (17:30)
[2020-05-19] MEDS ORDERED: ALBUTEROL SULF 2.5 MG/0.5ML(0.5%) NEB SOLN NEB PRN (17:30)
[2020-05-19] MEDS: IPRATROPIUM BROM 0.5 MG/2.5ML INH SOL NEB SCH ×2 (18:00→23:37)
[2020-05-19] MEDS: ALBUTEROL SULF 2.5 MG/0.5ML(0.5%) NEB SOLN NEB SCH (18:00)
[2020-05-19] MEDS: SODIUM CHLORIDE 0.9% 1,000 ML IV SCH (18:27)
[2020-05-19] MEDS ORDERED: LORazepam 2MG/ML-1ML VIAL ONE ×2 (18:35)
[2020-05-19] MEDS ORDERED: ONDANSETRON HCL 4 MG/2 ML VIAL ONE (18:36)
[2020-05-19] MEDS ORDERED: LORazepam 2MG/ML-1ML VIAL IV ONE (18:45)
[2020-05-19] MEDS ORDERED: ONDANSETRON HCL 4 MG/2 ML VIAL IV ONE (19:00)
[2020-05-19] MEDS ORDERED: LORazepam 2MG/ML-1ML VIAL IV PRN (19:30)
[2020-05-19] MEDS: InsuLIN REG 1unit/0.01ml Soln (100units/ml) SC SCH (20:00)
[2020-05-19] MEDS: ACCU-CHEK COMFORT CURVE STRIP VI SCH (20:00)
[2020-05-19] MEDS: METOPROLOL TARTRATE 25 MG TAB PO SCH (21:44)
[2020-05-19] MEDS: ATORVASTATIN 20 MG TAB PO SCH (21:45)
[2020-05-19] MEDS: INSULIN LANTUS (GLARGINE) 1 /0.01ml (100units/ml) SC SCH (21:46)
[2020-05-20] MEDS: SODIUM CHLORIDE 0.9% 1,000 ML IV SCH ×3 (00:46→17:32)
[2020-05-20] MEDS: ACCU-CHEK COMFORT CURVE STRIP VI SCH ×6 (04:00→20:40)
[2020-05-20] MEDS: InsuLIN REG 1unit/0.01ml Soln (100units/ml) SC SCH ×6 (04:00→20:40)
[2020-05-20 05:28] LABS: Basophils # (auto) 0 10 ^3/uL (0-0.2); Basophils % (auto) 0.3 % (0.0-2.0); Eosinophils # (auto) 0.1 10 ^3/uL (0-0.8); Eosinophils % (auto) 0.9 % (0.0-7.0); Hematocrit 41.3 % (41.0-53.0); Hemoglobin 14.2 g/dL (13.5-17.5); Lymphocytes # (auto) 2.8 10 ^3/uL (0.4-5.4); Mean Corpuscular Hemoglobin 29.3 pg (28.0-32.0); Mean Corpuscular Hgb Conc. 34.4 g/dL (32.0-36.0); Mean Corpuscular Volume 85.2 fL (80.0-100.0); Monocytes # (auto) 0.6 10 ^3/uL (0-1.3); Monocytes % (auto) 5.8 % (0.0-12.0); Neutrophils # (auto) 6.1 10 ^3/uL (1.6-8.6); Nucleated Red Blood Cells % 0.2 %; Red Blood Cells 4.85 10^6/uL (4.5-5.90); Red Cell Distribution Width 12.7 % (11.8-14.3); White Blood Cell 9.5 10^3/uL (4.4-10.8)
[2020-05-20 05:39] LABS: Albumin 2.8 g/dL (3.4-5.0); Calcium 8.2 mg/dL (8.5-10.1); Potassium 3.6 mmol/L (3.5-5.1)
[2020-05-20 05:43] LABS: BUN/Creatinine Ratio 20.3; Bilirubin, Total 0.2 mg/dL (0.2-1.0); Total Protein 6.6 g/dL (6.4-8.2)
[2020-05-20] MEDS: ALBUTEROL SULF 2.5 MG/0.5ML(0.5%) NEB SOLN NEB SCH ×5 (06:00→23:36)
[2020-05-20] MEDS: IPRATROPIUM BROM 0.5 MG/2.5ML INH SOL NEB SCH ×4 (06:00→23:36)
[2020-05-20] MEDS: INSULIN LANTUS (GLARGINE) 1 /0.01ml (100units/ml) SC SCH ×2 (06:33→22:18)
[2020-05-20] MEDS: ENOXAPARIN SOD 40 MG/0.4 ML SYRINGE SC SCH (09:36)
[2020-05-20] MEDS: ASPirin 81 mg TAB PO SCH (09:36)
[2020-05-20] MEDS: METOPROLOL TARTRATE 25 MG TAB PO SCH ×2 (09:37→22:18)
[2020-05-20] MEDS: NITROGLYCERIN 0.2MG/HR TOPICAL PATCH TD SCH (09:37)
[2020-05-20] MEDS ORDERED: ASPirin-EC 81 mg tab PO SCH (10:00)
[2020-05-20 18:00] LABS: Alcohol, Urine < 3.0 mg/dL (0-10); Amphetamine Screen, Urine NEGATIVE (NEGATIVE); Barbiturate Scree,Urine NEGATIVE (NEGATIVE); Benzodiazephine Screen, Urine NEGATIVE (NEGATIVE); Cannabinoid Screen, Urine NEGATIVE (NEGATIVE); Cocaine Screen, Urine NEGATIVE (NEGATIVE); Opiate Scree,Urine NEGATIVE (NEGATIVE); Phencyclidine Screen, Urine NEGATIVE (NEGATIVE)
[2020-05-20] MEDS: ATORVASTATIN 20 MG TAB PO SCH (22:18)
[2020-05-21] MEDS: InsuLIN REG 1unit/0.01ml Soln (100units/ml) SC SCH ×6 (00:01→21:11)
[2020-05-21] MEDS: ACCU-CHEK COMFORT CURVE STRIP VI SCH ×6 (00:01→21:10)
[2020-05-21] MEDS: SODIUM CHLORIDE 0.9% 1,000 ML IV SCH ×3 (02:08→17:37)
[2020-05-21] MEDS: IPRATROPIUM BROM 0.5 MG/2.5ML INH SOL NEB SCH ×3 (06:00→18:00)
[2020-05-21] MEDS: ALBUTEROL SULF 2.5 MG/0.5ML(0.5%) NEB SOLN NEB SCH ×3 (06:00→18:00)
[2020-05-21 06:30] LABS: Basophils # (auto) 0 10 ^3/uL (0-0.2); Basophils % (auto) 0.3 % (0.0-2.0); Eosinophils # (auto) 0.1 10 ^3/uL (0-0.8); Eosinophils % (auto) 1.2 % (0.0-7.0); Hematocrit 38.8 % (41.0-53.0); Hemoglobin 13.5 g/dL (13.5-17.5); Lymphocytes # (auto) 3.1 10 ^3/uL (0.4-5.4); Lymphocytes % (auto) 40.5 % (10.0-50.0); Mean Corpuscular Hemoglobin 29.6 pg (28.0-32.0); Mean Corpuscular Hgb Conc. 34.7 g/dL (32.0-36.0); Mean Corpuscular Volume 85.2 fL (80.0-100.0); Monocytes # (auto) 0.4 10 ^3/uL (0-1.3); Monocytes % (auto) 5.8 % (0.0-12.0); Neutrophils % (auto) 52.2 % (37.0-80.0); Nucleated Red Blood Cells % 0.1 %; Red Blood Cells 4.56 10^6/uL (4.5-5.90); Red Cell Distribution Width 12.8 % (11.8-14.3); White Blood Cell 7.6 10^3/uL (4.4-10.8)
[2020-05-21 06:44] LABS: Albumin 2.8 g/dL (3.4-5.0); Calcium 8.5 mg/dL (8.5-10.1)
[2020-05-21 06:47] LABS: Bilirubin, Total 0.3 mg/dL (0.2-1.0); Total Protein 6.9 g/dL (6.4-8.2)
[2020-05-21] MEDS: INSULIN LANTUS (GLARGINE) 1 /0.01ml (100units/ml) SC SCH ×2 (06:51→22:31)
[2020-05-21] MEDS: ASPirin 81 mg TAB PO SCH (08:06)
[2020-05-21] MEDS: ENOXAPARIN SOD 40 MG/0.4 ML SYRINGE SC SCH (08:06)
[2020-05-21] MEDS: METOPROLOL TARTRATE 25 MG TAB PO SCH ×2 (08:06→22:25)
[2020-05-21] MEDS: NITROGLYCERIN 0.2MG/HR TOPICAL PATCH TD SCH (08:07)
[2020-05-21] MEDS ORDERED: LORazepam 2MG/ML-1ML VIAL IV PRN (08:15)
[2020-05-21] MEDS ORDERED: GADOTERATE MEG 7.5 MMOL/15ml INJ (0.5MMOL/ml) IV ONE (09:12)
[2020-05-21] MEDS: MORPHINE SULFATE INJECTION 2 MG/ML SYRG IV PRN ×2 (15:40→21:12)
[2020-05-21] MEDS: PROMETHAZINE HCL 25 MG/ML 1ML IV PRN (15:40)
[2020-05-21 22:00] VITALS: BP 145/100
[2020-05-21] MEDS: ATORVASTATIN 20 MG TAB PO SCH (22:25)
[2020-05-22] MEDS: ALBUTEROL SULF 2.5 MG/0.5ML(0.5%) NEB SOLN NEB SCH ×2 (00:14→07:02)
[2020-05-22] MEDS: IPRATROPIUM BROM 0.5 MG/2.5ML INH SOL NEB SCH ×2 (00:14→07:02)
[2020-05-22] MEDS: InsuLIN REG 1unit/0.01ml Soln (100units/ml) SC SCH ×4 (00:18→17:44)
[2020-05-22] MEDS: ACCU-CHEK COMFORT CURVE STRIP VI SCH ×5 (00:18→22:40)
[2020-05-22] MEDS: MORPHINE SULFATE INJECTION 2 MG/ML SYRG IV PRN ×4 (01:14→21:43)
[2020-05-22] MEDS: SODIUM CHLORIDE 0.9% 1,000 ML IV SCH ×2 (01:48→09:30)
[2020-05-22 05:00] VITALS: BP 141/89
[2020-05-22] MEDS: INSULIN LANTUS (GLARGINE) 1 /0.01ml (100units/ml) SC SCH (06:42)
[2020-05-22 08:00] VITALS: BP 145/81
[2020-05-22] MEDS: ENOXAPARIN SOD 40 MG/0.4 ML SYRINGE SC SCH (09:36)
[2020-05-22] MEDS: NITROGLYCERIN 0.2MG/HR TOPICAL PATCH TD SCH (09:37)
[2020-05-22] MEDS: METOPROLOL TARTRATE 25 MG TAB PO SCH ×2 (09:38→21:56)
[2020-05-22] MEDS: ASPirin 81 mg TAB PO SCH (09:38)
[2020-05-22 11:03] LABS: Calcium 8.3 mg/dL (8.5-10.1)
[2020-05-22 11:07] LABS: BUN/Creatinine Ratio 14.5
[2020-05-22 11:18] LABS: Basophils # (auto) 0 10 ^3/uL (0-0.2); Basophils % (auto) 0.3 % (0.0-2.0); Eosinophils # (auto) 0.1 10 ^3/uL (0-0.8); Eosinophils % (auto) 0.6 % (0.0-7.0); Hematocrit 39.6 % (41.0-53.0); Hemoglobin 13.5 g/dL (13.5-17.5); Lymphocytes # (auto) 2.2 10 ^3/uL (0.4-5.4); Lymphocytes % (auto) 25.6 % (10.0-50.0); Mean Corpuscular Hemoglobin 29.4 pg (28.0-32.0); Mean Corpuscular Hgb Conc. 34.2 g/dL (32.0-36.0); Mean Corpuscular Volume 85.9 fL (80.0-100.0); Monocytes # (auto) 0.6 10 ^3/uL (0-1.3); Neutrophils # (auto) 5.6 10 ^3/uL (1.6-8.6); Neutrophils % (auto) 66.5 % (37.0-80.0); Red Blood Cells 4.61 10^6/uL (4.5-5.90); Red Cell Distribution Width 12.6 % (11.8-14.3); White Blood Cell 8.4 10^3/uL (4.4-10.8)
[2020-05-22] MEDS ORDERED: DEXTROSE (50%) 50ML SYRG IV PRN (12:15)
[2020-05-22] MEDS ORDERED: ASPI81CH43 PO (12:42)
[2020-05-22] MEDS ORDERED: ATOR40TA52 PO (12:42)
[2020-05-22] MEDS ORDERED: ATOR20TA50 PO (12:46)
[2020-05-22] MEDS ORDERED: levoFLOXacin 250 MG TAB PO ONE (14:15)
[2020-05-22 16:00] VITALS: BP 152/85
[2020-05-22] MEDS ORDERED: LISINOPRIL 10 MG TAB PO ONE (16:30)
[2020-05-22 20:30] LABS: Cholesterol 183 mg/dL (< 200); HDL Cholesterol 34 mg/dL (40-59); LDL Cholesterol 121 mg/dL (< 100); Triglycerides 229 mg/dL (< 150)
[2020-05-22] MEDS: PROMETHAZINE HCL 25 MG/ML 1ML IV PRN (21:42)
[2020-05-22 22:00] VITALS: BP 125/86
[2020-05-22] MEDS ORDERED: INSULIN LANTUS (GLARGINE) 1 /0.01ml (100units/ml) SC SCH (22:00)
[2020-05-22] MEDS ORDERED: ATORVASTATIN 20 MG TAB PO SCH (22:00)
[2020-05-22] MEDS ORDERED: InsuLIN REG 1unit/0.01ml Soln (100units/ml) SC SCH (22:00)
[2020-05-23] MEDS: PROMETHAZINE HCL 25 MG/ML 1ML IV PRN (03:05)
[2020-05-23] MEDS: MORPHINE SULFATE INJECTION 2 MG/ML SYRG IV PRN ×2 (03:06→09:13)
[2020-05-23 05:00] VITALS: BP 138/79
[2020-05-23] MEDS: ACCU-CHEK COMFORT CURVE STRIP VI SCH ×2 (06:45→11:30)
[2020-05-23] MEDS: InsuLIN REG 1unit/0.01ml Soln (100units/ml) SC SCH ×2 (06:47→11:30)
[2020-05-23 08:00] VITALS: BP 126/74
[2020-05-23] MEDS ORDERED: INSLANTI SC (09:52)
[2020-05-23] MEDS ORDERED: LEVO750T64 PO (09:52)
[2020-05-23] MEDS ORDERED: MET25T PO (09:52)
[2020-05-23] MEDS ORDERED: METF-370 PO (09:52)
[2020-05-23] MEDS ORDERED: LISI-716 PO (09:52)
[2020-05-23] MEDS ORDERED: levoFLOXacin 250 MG TAB PO ONE (10:00)
[2020-05-23] MEDS ORDERED: LISINOPRIL 10 MG TAB PO SCH (10:00)
[2020-05-23] MEDS: METOPROLOL TARTRATE 25 MG TAB PO SCH (10:54)
[2020-05-23] MEDS: ASPirin 81 mg TAB PO SCH (10:54)
[2020-05-23] MEDS: ENOXAPARIN SOD 40 MG/0.4 ML SYRINGE SC SCH (10:56)
[2020-05-23 16:00] VITALS: BP 116/71
== END 2020-05-23 17:00 | disposition home or self-care (01) | DRG 45 ==
LOC: EDBD 12:32 → ER 12:32 → TELE 16:16 → TELE-CENTR 05-21 19:00
PROVIDERS: ADMIT Internal Medicine; ATTEND Internal Medicine
DX: I63.511 Cerebral infarction due to unspecified occlusion or stenosis of right middle cerebral artery (principal); E11.00 Type 2 diabetes mellitus with hyperosmolarity without nonketotic hyperglycemic-hyperosmolar coma (NKHHC); J18.9 Pneumonia, unspecified organism; N17.0 Acute kidney failure with tubular necrosis; E44.0 Moderate protein-calorie malnutrition; G40.409 Other generalized epilepsy and epileptic syndromes, not intractable, without status epilepticus; E78.5 Hyperlipidemia, unspecified; I25.119 Atherosclerotic heart disease of native coronary artery with unspecified angina pectoris; I12.9 Hypertensive chronic kidney disease with stage 1 through stage 4 chronic kidney disease, or unspecified chronic kidney disease; Z20.822 Contact with and (suspected) exposure to COVID-19; E11.22 Type 2 diabetes mellitus with diabetic chronic kidney disease; E11.51 Type 2 diabetes mellitus with diabetic peripheral angiopathy without gangrene; F17.210 Nicotine dependence, cigarettes, uncomplicated; I42.9 Cardiomyopathy, unspecified; J44.0 Chronic obstructive pulmonary disease with (acute) lower respiratory infection; N18.9 Chronic kidney disease, unspecified; Z79.82 Long term (current) use of aspirin; Z79.899 Other long term (current) drug therapy; Z80.1 Family history of malignant neoplasm of trachea, bronchus and lung; Z82.49 Family history of ischemic heart disease and other diseases of the circulatory system; Z83.3 Family history of diabetes mellitus; Z98.62 Peripheral vascular angioplasty status; Z79.4 Long term (current) use of insulin
CPT/HCPCS: 36415; 70450; 70553; 71045; 71250; 80048; 80053; 80061; 80307; 82550; 82962; 83690; 83735; 83880; 84443; 84484; 85025; 85379; 85610; 85652; 85730; 86141; 87426; 93005; 93306; 93886; 94640; 95819; 96361; 96374; G0378; J1815; J2405